=== PATIENT | male | born 1980 | race African-American/Black ===

== ENCOUNTER 2018-08-13 19:13 | Emergency (ER) | payer MEDICAID ==
[~2018-08-13] VITALS: Ht 182.9 cm; Wt 72.6 kg
[2018-08-13 22:38] VITALS: BP 157/81
== END 2018-08-13 23:35 | disposition home or self-care (01) ==
LOC: ER 19:13
DX: H65.92 Unspecified nonsuppurative otitis media, left ear (principal); R05 Cough
CPT/HCPCS: 71046

== ENCOUNTER 2019-02-15 17:52 | Emergency (ER) | payer MEDICAID ==
[~2019-02-15] VITALS: Ht 182.9 cm; Wt 81.6 kg
[2019-02-15 18:57] VITALS: BP 123/62
== END 2019-02-15 20:35 | disposition home or self-care (01) ==
LOC: ER 18:04
DX: J06.9 Acute upper respiratory infection, unspecified (principal)